=== PATIENT | female | born 2000 | race American Indian/Alaskan Native ===

== ENCOUNTER 2018-04-19 10:44 | Outpatient (CLI) | payer OTHER ==
[2018-04-19] MEDS ORDERED: PRENATAL TABLE1 EACH PO (11:05)
== END 2018-04-20 10:47 | disposition home or self-care (01) ==
LOC: OBS/DEL 10:44
DX: O60.03 Preterm labor without delivery, third trimester (principal); O99.013 Anemia complicating pregnancy, third trimester; D64.89 Other specified anemias; Z34.03 Encounter for supervision of normal first pregnancy, third trimester

== ENCOUNTER 2019-11-24 23:19 | Emergency (ER) | payer OTHER ==
[~2019-11-24] VITALS: Ht 162.6 cm; Wt 44.5 kg
[~2019-11-24 23:19] MED LIST: FERROUS SULFAT325 MG PO; PRENATAL TABLE1 EACH PO
[2019-11-24] MEDS ORDERED: PRENATALES (23:45)
== END 2019-11-25 03:52 | disposition home or self-care (01) ==
LOC: ER 23:19
DX: O20.8 Other hemorrhage in early pregnancy (principal); Z3A.01 Less than 8 weeks gestation of pregnancy

== ENCOUNTER 2019-11-26 13:47 | Emergency (ER) | payer OTHER ==
[~2019-11-26] VITALS: Ht 162.6 cm; Wt 44.5 kg
[~2019-11-26 13:47] MED LIST changes: +PRENATALES
== END 2019-11-27 14:52 | disposition home or self-care (01) ==
LOC: ER 13:47
DX: O03.4 Incomplete spontaneous abortion without complication (principal); O26.851 Spotting complicating pregnancy, first trimester; O36.80X0 Pregnancy with inconclusive fetal viability, not applicable or unspecified; O30.91 Multiple gestation, unspecified, first trimester; Z3A.10 10 weeks gestation of pregnancy